=== PATIENT | male | born 1940 | race Caucasian/White ===

== ENCOUNTER 2018-05-13 18:11 | Emergency (ER) | payer OTHER ==
[~2018-05-13] VITALS: Ht 180.3 cm; Wt 97.5 kg
[2018-05-13] MEDS ORDERED: METFORMIN HCL500 MG (18:35)
[2018-05-13] MEDS ORDERED: TENORMIN50 M1 (18:35)
[2018-05-13] MEDS ORDERED: ATORVASTATIN CA20 MG (18:36)
== END 2018-05-13 22:43 | disposition home or self-care (01) ==
LOC: ER 18:11
DX: S01.01XA Laceration without foreign body of scalp, initial encounter (principal); S20.212A Contusion of left front wall of thorax, initial encounter; S20.211A Contusion of right front wall of thorax, initial encounter; V49.9XXA Car occupant (driver) (passenger) injured in unspecified traffic accident, initial encounter; Y93.89 Activity, other specified; Y92.488 Other paved roadways as the place of occurrence of the external cause; Y99.8 Other external cause status